=== PATIENT | female | born 1965 | race American Indian/Alaskan Native ===

== ENCOUNTER 2017-10-25 11:12 | Outpatient (CLI) | payer MEDICAID ==
--- NOTE | 2017-10-25 22:55 | XRay Report ---
FINAL REPORT PROCEDURE: XR ANKLE BILAT 3+V TECHNIQUE: Three views of the bilateral ankles HISTORY: ARTHRITIS, pain COMPARISON: No prior studies are available for comparison. FINDINGS: No fracture or dislocation is seen bilaterally. Bilaterally there is no joint space narrowing or osteophyte formation. The talar dome and ankle mortise are intact. IMPRESSION: Unremarkable exam
--- NOTE | 2017-10-26 17:11 | Vascular Lab Report ---
Right Lower Extremity Venous Duplex Study: Reason for Exam: Pain and swelling of the right lower extremity. Comments on the Right: All veins visualized are freely compressible without evidence of internal echogenicity. Flow is spontaneous and phasic throughout. No evidence of acute or chronic thrombus is seen in any of the vessels visualized. A soft tissue change in the right knee area is consistent with a Vigil's cyst. Comments on the Left: A limited duplex study was done of the proximal veins of the left lower extremity. All veins visualized are freely compressible without evidence of internal echogenicity. Flow is spontaneous and phasic throughout. No evidence of acute or chronic thrombus is seen in any of the vessels visualized. Impression: No evidence of acute or chronic deep venous thrombosis in the right lower extremity. A soft tissue change in the right knee area is consistent with a Vigil's cyst.
== END 2017-10-25 11:13 | disposition home or self-care (01) ==
LOC: VAS 11:12
PROVIDERS: ATTEND Podiatrist Foot & Ankle Surgery
DX: M79.89 Other specified soft tissue disorders (principal); R22.42 Localized swelling, mass and lump, left lower limb